=== PATIENT | female | born 1980 | race Caucasian/White ===

== ENCOUNTER 2017-01-22 22:13 | Observation (INO) | payer MEDICAID ==
[2017-01-22] MEDS ORDERED: ACETAMINOPHEN 500 MG TAB PO ONE (22:41)
[2017-01-22] MEDS ORDERED: NS 1,400 ML IV ONE (23:28)
[2017-01-22 23:43] LABS: ADD DIFF? YES; ADD MORPH? NO; ATYPICAL LYMPHOCYTE FLAG 0 (0-99); FRAGMENT RBC FLAG 0 (0-99); HEMATOCRIT 32.3 % (38.0-47.0); HEMOGLOBIN 11.3 g/dL (12.6-16.3); LIPEMIA HEMOLYSIS FLAG 90 (0-99); MEAN CELL HEMOGLOBIN 30.1 pg (27.9-34.1); MEAN CELL VOLUME 85.9 fL (81.5-99.8); MEAN PLATELET VOLUME 11.3 fL (8.7-11.7); PLATELET CLUMPS FLAG 0 (0-99); PLATELET COUNT 182 10^3/uL (150-400); RED BLOOD CELL COUNT 3.76 10^6/uL (4.18-5.33); RED CELL DISTRIBUTION WIDTH 13.8 % (11.5-15.2)
[2017-01-22 23:49] LABS: LEFT SHIFT FLG 190 (0-99)
[2017-01-22 23:50] LABS: ADD SCAN? NO
[2017-01-23 00:19] LABS: ANION GAP 13 mEq/L (8-16); BILIRUBIN,TOTAL 0.9 mg/dL (0.1-1.4); CALCIUM 8.3 mg/dL (8.5-10.4); CARBON DIOXIDE 24 mEq/l (22-31); CHLORIDE 98 mEq/L (97-110); GLOMERULAR FILTRATION RATE > 60; GLUCOSE 101 mg/dL (70-100); POTASSIUM 3.3 mEq/L (3.5-5.2); SODIUM 135 mEq/L (134-144)
[2017-01-23 00:20] LABS: INR 1.24 (0.83-1.16); PROTIME(PATIENT) 15.6 SEC (12.0-15.0)
[2017-01-23 00:21] LABS: APTT 31.3 SEC (23.0-38.0)
[2017-01-23 00:26] LABS: COLOR YELLOW; LEUKOCYTE ESTERASE,URINE TRACE (NEGATIVE); NITRITE,URINE NEGATIVE (NEGATIVE)
[2017-01-23 00:34] LABS: PLATELET ESTIMATE ADEQUATE (ADEQ)
[2017-01-23 00:35] LABS: TOXIC GRANULATION PRESENT
[2017-01-23 00:46] LABS: BACTERIA 2+ /hpf (NONE SEEN); WBC,URINE 15-25 /hpf (0-3)
--- NOTE | 2017-01-23 01:13 | EDPHY ---
H & P Stated Complaint: fever, SOB, SANDERS, abd cramps and constipation x6 days Time Seen by Provider: 01/22/17 23:19 HPI/ROS: HPI The patient presents with fever that has been present for the last 1 week which started slowly and has been intermittent. She reports drenching sweats at night. She has been taking ibuprofen and Tylenol for the fever with some improvement in her symptoms. The fever is associated with a diffuse throbbing headache as well as myalgias throughout her body. She denies any rash, nuchal rigidity, photophobia. This morning she noted that her breathing was labored and was concerned because she has a history of pneumonia. She denies any cough or hemoptysis. She does have a longstanding dental infection and was supposed to have a tooth extraction but did not. She is homeless and does admit to IV drug use.. REVIEW OF SYSTEMS Constitutional: Positive for fever and chills Eyes: No discharge. ENT: No sore throat. Cardiovascular: No chest pain, no palpitations. Respiratory: No cough, no shortness of breath. Gastrointestinal: No abdominal pain, no vomiting. Genitourinary: No hematuria. Musculoskeletal: No back pain. Skin: No rashes. Neurological: No headache. PMHx: Anxiety, history of pneumonia, no PMD Soc Hx: IV drug use, homeless PHYSICAL General Appearance: Alert, no distress Eyes: Pupils equal and round no pallor or injection ENT, Mouth: Mucous membranes dry Respiratory: There are no retractions, lungs are clear to auscultation Cardiovascular: Tachycardic rate, regular rhythm, no murmur Gastrointestinal: Abdomen is soft and non-tender, no masses, bowel sounds normal, there is mild left-sided CVAT Neurological: A&O, moves all extremities Skin: Warm and dry, no rashes Musculoskeletal: Neck is supple non tender Extremities: symmetrical, full range of motion Psychiatric: Patient is oriented X 3, there is no agitation Source: Patient Exam Limitations: No limitations - Personal History LMP (Females 10-55): Irregular Current Tetanus/Diphtheria Vaccine: Yes Tetanus Vaccine Date: 2012 - Medical/Surgical History Hx Asthma: No Hx Chronic Respiratory Disease: No Hx Diabetes: No Hx Cardiac Disease: No Hx Renal Disease: No Hx Cirrhosis: No Hx Alcoholism: No Hx HIV/AIDS: No Hx Splenectomy or Spleen Trauma: No Other PMH: anxiety, pneumonia, dental caries - Social History Smoking Status: Heavy smoker Constitutional: Initial Vital Signs Temperature (C) 38.2 C 01/22/17 22:37 Heart Rate 120 H 01/22/17 22:37 Respiratory Rate 18 01/22/17 22:37 Blood Pressure 101/64 01/22/17 22:37 O2 Sat (%) 98 01/22/17 22:37 O2 Delivery Mode Room Air O2 (L/minute) 37.9 Allergies/Adverse Reactions: No Known Allergies Allergy (Verified 08/08/13 12:00) Home Medications: Medication Instructions Recorded NK [No Known Home Meds] 01/22/17 Medical Decision Making - Diagnostics Imaging Results: Imaging Impressions Chest X-Ray 01/22/17 23:28 Impression: Normal. Imaging: I viewed and interpreted images myself Differential Diagnosis: This is a 36-year-old female with history of IV drug use, homelessness, who presents from home with fever for the last 7 days which has been intermittent. On exam, she is febrile, tachycardic, with stable blood pressure. There is no obvious source of her fever on exam. Differential diagnosis includes endocarditis, pyelonephritis, pneumonia, less likely urinary tract infection or abscess. In the emergency room, patient was given a 2 L fluid bolus with improvement in her tachycardia from 120 to 90s. Labs were checked and did reveal a leukocytosis, signs of mild urinary tract infection, normal lactate. His urine toxicology was positive for drugs. Given concern for endocarditis and poor social situation, the patient will require admission to the hospital. I have consulted with Dr. Diehl and we plan to admit the patient. - Data Points Laboratory Results: Laboratory Results 01/22/17 23:25 01/22/17 23:25 01/23/17 01/23/17 01/22/17 00:10 00:10 23:25 WBC RBC Hgb Hct MCV MCH MCHC RDW Plt Count MPV Neut % (Auto) Lymph % (Auto) [place] % (Auto) Eos % (Auto) Baso % (Auto) Nucleat RBC Rel Count Absolute Neuts (auto) Absolute Lymphs (auto) Absolute Monos (auto) Absolute Eos (auto) Absolute Basos (auto) Absolute Nucleated RBC Immature Gran % Seg Neutrophils % Band Neutrophils % Lymphocytes % Monocytes % Immature Gran # Absolute Seg Neuts Absolute Band Neuts Absolute Lymphocytes Absolute Monocytes Toxic Granulation Platelet Estimate PT INR APTT VBG Lactic Acid Sodium 135 mEq/L mEq/L (134-144) Potassium 3.3 mEq/L L mEq/L (3.5-5.2) Chloride 98 mEq/L mEq/L (97-110) Carbon Dioxide 24 mEq/l mEq/l (22-31) Anion Gap 13 mEq/L mEq/L (8-16) BUN 30 mg/dL H mg/dL (7-23) Creatinine 1.0 mg/dL mg/dL (0.6-1.0) Estimated GFR > 60 Glucose 101 mg/dL H mg/dL (70-100) Calcium 8.3 mg/dL L mg/dL (8.5-10.4) Total Bilirubin 0.9 mg/dL mg/dL (0.1-1.4) Urine Color YELLOW Urine Appearance HAZY Urine pH 6.0 (5.0-7.5) Ur Specific [place] 1.014 (1.002-1.030) Urine Protein 1+ H (NEGATIVE) Urine Ketones NEGATIVE (NEGATIVE) Urine Blood 1+ H (NEGATIVE) Urine Nitrate NEGATIVE (NEGATIVE) Urine Bilirubin NEGATIVE (NEGATIVE) Urine Urobilinogen NEGATIVE EU EU (0.2-1.0) Ur Leukocyte Esterase TRACE H (NEGATIVE) Urine RBC 1-3 /hpf /hpf (0-3) Urine WBC 15-25 /hpf H /hpf (0-3) Ur Epithelial Cells TRACE /lpf /lpf (NONE-1+) Urine Bacteria 2+ /hpf H /hpf (NONE SEEN) Urine Glucose NEGATIVE (NEGATIVE) Urine Opiates Screen NON-NEGATIVE H (NEGATIVE) Urine Barbiturates NEGATIVE (NEGATIVE) Ur Phencyclidine Scrn NEGATIVE (NEGATIVE) Ur Amphetamine Screen NON-NEGATIVE H (NEGATIVE) U Benzodiazepines Scrn NEGATIVE (NEGATIVE) Urine Cocaine Screen NEGATIVE (NEGATIVE) U Marijuana (THC) Screen NON-NEGATIVE H (NEGATIVE) 01/22/17 01/22/17 01/22/17 23:25 23:25 23:25 WBC 11.21 10^3/uL H 10^3/uL (3.80-9.50) RBC 3.76 10^6/uL L 10^6/uL (4.18-5.33) Hgb 11.3 g/dL L g/dL (12.6-16.3) Hct 32.3 % L % (38.0-47.0) MCV 85.9 fL fL (81.5-99.8) MCH 30.1 pg pg (27.9-34.1) MCHC 35.0 g/dL g/dL (32.4-36.7) RDW 13.8 % % (11.5-15.2) Plt Count 182 10^3/uL 10^3/uL (150-400) MPV 11.3 fL fL (8.7-11.7) Neut % (Auto) Not Reported Lymph % (Auto) Not Reported [place] % (Auto) Not Reported Eos % (Auto) Not Reported Baso % (Auto) Not Reported Nucleat RBC Rel Count 0.0 % % (0.0-0.2) Absolute Neuts (auto) Not Reported Absolute Lymphs (auto) Not Reported Absolute Monos (auto) Not Reported Absolute Eos (auto) Not Reported Absolute Basos (auto) Not Reported Absolute Nucleated RBC 0.00 10^3/uL 10^3/uL (0-0.01) Immature Gran % Not Reported Seg Neutrophils % 66 % % Band Neutrophils % 9 % % Lymphocytes % 21 % % Monocytes % 4 % % Immature Gran # Not Reported Absolute Seg Neuts 7.40 10^/uL H 10^/uL (1.70-6.50) Absolute Band Neuts 1.01 10^3/uL H 10^3/uL (0.00-0.70) Absolute Lymphocytes 2.35 10^3/uL 10^3/uL (1.00-3.00) Absolute Monocytes 0.45 10^3/uL 10^3/uL (0.30-0.80) Toxic Granulation PRESENT H Platelet Estimate ADEQUATE (ADEQ) PT 15.6 SEC H SEC (12.0-15.0) INR 1.24 H (0.83-1.16) APTT 31.3 SEC SEC (23.0-38.0) VBG Lactic Acid 1.2 mmol/L mmol/L (0.7-2.1) Sodium Potassium Chloride Carbon Dioxide Anion Gap BUN Creatinine Estimated GFR Glucose Calcium Total Bilirubin Urine Color Urine Appearance Urine pH Ur Specific [place] Urine Protein Urine Ketones Urine Blood Urine Nitrate Urine Bilirubin Urine Urobilinogen Ur Leukocyte Esterase Urine RBC Urine WBC Ur Epithelial Cells Urine Bacteria Urine Glucose Urine Opiates Screen Urine Barbiturates Ur Phencyclidine Scrn Ur Amphetamine Screen U Benzodiazepines Scrn Urine Cocaine Screen U Marijuana (THC) Screen Medications Given: Discontinued Medications Acetaminophen (Tylenol) 1,000 mg PO EDNOW ONE Stop: 01/22/17 22:42 Last Admin: 01/22/17 22:49 Dose: 1,000 mg Sodium Chloride (Ns) 1,400 mls @ 2,800 mls/hr 30 ml/kg infuse over 30 min ( 1400 ml) IV EDNOW ONE PRN Reason: Protocol Stop: 01/22/17 23:57 Last Admin: 01/22/17 23:45 Dose: 1,400 mls Departure - Departure Disposition: [facility] Inpatient Acute Clinical Impression: IVDU (intravenous drug user) Fever Qualifiers: Fever type: unspecified Qualified Code(s): R50.9 - Fever, unspecified UTI (urinary tract infection) Qualifiers: Urinary tract infection type: site unspecified Hematuria presence: without hematuria Qualified Code(s): N39.0 - Urinary tract infection, site not specified Condition: Fair Referrals: NONE *PRIMARY CARE P,. [Primary Care Provider] - As per Instructions
[2017-01-23] MEDS ORDERED: PROTOCOL POTASSIUM 1 DOSE MISC PRN (01:55)
[2017-01-23] MEDS ORDERED: PROMETHAZINE HCL 25 MG/ML INJ IVP PRN (01:56)
[2017-01-23] MEDS ORDERED: ONDANSETRON 4 MG/2 ML VIAL IVP PRN (01:56)
[2017-01-23] MEDS ORDERED: NS 1,000 ML IV ONE (01:56)
[2017-01-23] MEDS ORDERED: ACETAMINOPHEN 325 MG TAB PO PRN (01:56)
[2017-01-23] MEDS ORDERED: D5W 1/2 NS W/ 20 KCl/L 1,000 ML IV SCH (02:00)
[2017-01-23] MEDS ORDERED: VANCOMYCIN 750 MG in D5W 150 ML IV SCH (02:30)
--- NOTE | 2017-01-23 03:22 | GHP ---
[f rep st] HISTORY AND PHYSICAL DATE OF ADMISSION: 01/23/2017 CHIEF COMPLAINT: Fever. HISTORY OF PRESENT ILLNESS: This is a 36-year-old female with history of IV drug abuse, last use ye sterday, who presents to the emergency department with a 1-week history of persistent fevers. She d enies any cough but did have some shortness of breath today which prompted her to come to the emerge ncy department for further evaluation. She denies any rashes or abscesses. She denies any urinary complaints. She denies any nausea, vomiting, or diarrhea. PAST MEDICAL HISTORY: 1. Hospitalization in 2013 for strep pneumonia and bacteremia. 2. History of anxiety and chronic benzodiazepine use. 3. History of polysubstance abuse. PAST SURGICAL HISTORY: Denies. HOME MEDICATIONS: None. ALLERGIES: No known drug allergies. SOCIAL HISTORY: She lives in [place]. She is a smoker. She uses heroin off and on. Her last use was yesterday. FAMILY HISTORY: Reviewed and noncontributory. REVIEW OF SYSTEMS: Comprehensive 10-point review of systems was done and is negative, except for as mentioned in the HPI. PHYSICAL EXAM: VITAL SIGNS: Blood pressure 84/53, pulse of 102, respiratory rate 20, O2 saturation 96% on room air. Temperature afebrile currently but was 38.2 on initial presentation. GENERAL: N o acute distress. HEAD: Normocephalic, atraumatic. EYES: PERRLA. Sclerae anicteric. MOUTH: Mo ist mucous membranes. NECK: Supple. No lymphadenopathy. CARDIOVASCULAR: Tachycardic, S1, S2, no JVD. No lower extremity edema. PULMONARY: Lungs are clear. No wheezes, rales, or rhonchi. ABDO MEN: Soft, nontender, nondistended. No guarding or rebound tenderness. Normoactive bowel sounds. EXTREMITIES: No clubbing or cyanosis. NEURO: Cranial nerves 2-12 grossly intact. No focal motor or sensory deficits. SKIN: There are some track fernandez in the right AC there is no abscess. There are signs of cellulitis. DIAGNOSTICS: WBC is 11.21, hemoglobin 11.3, hematocrit 32.3, platelets 182, 9% bands, lactic acid 1 .2, sodium 135, potassium 3.3, chloride 98, CO2 24, BUN 30, creatinine 13, glucose 101. UA 15-25 WB Cs, trace leukocyte esterase. Urine tox screen negative for opiates, amphetamines, and marijuana. Chest x-ray which I visualized and personally interpreted, is negative for pneumonia. ASSESSMENT AND PLAN: This is a 36-year-old female with history of IV drug abuse presenting with: 1. Systemic inflammatory responsive syndrome with suspected sepsis with unclear source, worrisome f or bloodstream infection or possibly endocarditis given her history of IV drug abuse. Plan: The tanja sarabia will be admitted to the hospital for further observation. She was started on ceftriaxone whic h will be stopped. Will begin empiric treatment with vancomycin as well as levofloxacin to cover fo r possible urinary tract infection given her pyuria. 2. Hypotension. Plan: Continue to monitor for signs and symptoms of severe sepsis or septic shock . For now, we will continue to treat with IV fluids. I suspect that she is severely volume deplete d given her BUN to creatinine ratio of 30:1. 3. Mild hypokalemia. Plan: Replace per protocol. /[id number]/MODL
[2017-01-23 04:05] VITALS: BP 85/54; PULSE 85; RESP 16; TEMP 98.7; O2SAT 95
--- NOTE | 2017-01-23 17:29 | GDS ---
[f rep st] DISCHARGE SUMMARY HISTORY OF PRESENT ILLNESS: The patient presented to the hospital with fever in the setting of IV d rug abuse. She did not have any obvious localizing symptoms, other than fever. Her workup revealed signs of systemic inflammatory response syndrome. Blood cultures were drawn. HOSPITAL COURSE: She received a dose of Rocephin initially in the emergency department, and also re ceived a dose of vancomycin prior to her leaving the hospital against medical advice at 5 in the [facility] prior to me visiting with her. I attempted to contact the patient at her listed phone number, without success. The number listed in the computer, , does not belong to her. /[id number]/MODL
== END 2017-01-23 05:34 | disposition left against medical advice (07) ==
LOC: F3E 01-23 02:06
PROVIDERS: ADMIT Family Medicine; ATTEND Family Medicine
PROC: 3E03329 Introduction of Other Anti-infective into Peripheral Vein, Percutaneous Approach (ICD-10-PCS; principal; 2017-01-22)
PROC: 3E0337Z Introduction of Electrolytic and Water Balance Substance into Peripheral Vein, Percutaneous Approach (ICD-10-PCS; 2017-01-23)
DX: R50.9 Fever, unspecified (principal); F19.10 Other psychoactive substance abuse, uncomplicated; N39.0 Urinary tract infection, site not specified; E87.6 Hypokalemia; I95.9 Hypotension, unspecified; E86.9 Volume depletion, unspecified; M79.1 Myalgia; R51 Headache; K04.7 Periapical abscess without sinus; F17.200 Nicotine dependence, unspecified, uncomplicated; Z59.0 Homelessness
CPT/HCPCS: 71020; 96361; 96365; 99285; G0378; 80305; J0696; J3370